=== PATIENT | female | born 1975 | race Caucasian/White ===

== ENCOUNTER 2022-09-06 11:13 | Emergency (ER) | payer SELFPAY ==
[~2022-09-06] VITALS: Ht 177.8 cm; Wt 104.3 kg
[2022-09-06] MEDS ORDERED: LEVOTHYROXINE75 MC1 PO (11:59)
[2022-09-06] MEDS ORDERED: METFORMIN HCL500 M2 PO (12:00)
[2022-09-06] MEDS ORDERED: COZAAR100 MG PO (12:00)
[2022-09-06] MEDS ORDERED: OMEPRAZOLE40 MG PO (12:00)
== END 2022-09-07 10:48 | disposition home or self-care (01) ==
LOC: ED 11:13
DX: F30.9 Manic episode, unspecified (principal); E03.9 Hypothyroidism, unspecified; Z79.899 Other long term (current) drug therapy; Z79.84 Long term (current) use of oral hypoglycemic drugs
CPT/HCPCS: 36415; 80053; 84443; 84703; 85025; 99284; A9270; G0480